=== PATIENT | female | born 1975 | race Caucasian/White ===

== ENCOUNTER 2018-04-21 06:24 | Emergency (ER) | payer OTHER ==
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
--- NOTE | 2018-04-21 09:34 | Diagnostic Imaging Report ---
CT scan thoracic spine HISTORY: Pain, trauma Total DLP equals 911 CTDI equals 25.1 Axial sections were obtained through the thoracic spine. Additional sagittal and coronal reformatted images are provided. Alignment is normal. Disc spaces are maintained. Minimal spur formation noted off the anterior margins of several vertebrae. No acute abnormalities. No fractures. No obvious extradural abnormalities. IMPRESSION: 1. No acute abnormalities 2. Mild degenerative changes
== END 2018-04-21 09:50 | disposition home or self-care (01) ==
LOC: ER 06:24
DX: S23.9XXA Sprain of unspecified parts of thorax, initial encounter (principal); S29.012A Strain of muscle and tendon of back wall of thorax, initial encounter; M19.90 Unspecified osteoarthritis, unspecified site; J45.909 Unspecified asthma, uncomplicated; Z98.890 Other specified postprocedural states; V43.52XA Car driver injured in collision with other type car in traffic accident, initial encounter; Y93.89 Activity, other specified; Y92.410 Unspecified street and highway as the place of occurrence of the external cause; Y99.8 Other external cause status
CPT/HCPCS: 70450-TC; 71250-TC; 72125-TC; 72128-TC; 81025-TC; Z7502